=== PATIENT | male | born 1970 | race Caucasian/White ===

== ENCOUNTER 2020-11-28 07:36 | Emergency (ER) | payer MEDICARE, MEDICAID, SELFPAY ==
[2020-11-28 07:55] VITALS: BP 124/90; PULSE 96; RESP 18; TEMP 37; O2SAT 97; BMI 28.8
--- NOTE | 2020-11-28 08:24 | ED_ITS ---
HPI - Skin/Abscess/Foreign Bdy General Chief complaint: Skin/Abscess/Foreign Body Stated complaint: GROWTH ON BACK OF HEAD Time Seen by Provider: 11/28/20 08:10 Source: patient Mode of arrival: ambulatory Limitations: no limitations History of Present Illness HPI narrative: 50-year-old male presents to the ER for evaluation of a painful bump on the back of his head present for the last 3 weeks. He reports being s tarted on antibiotics on Wednesday. The lesions started to drain some pus the other day. He reports some chills and ongoing pain. He would like the lesion to be drained further. He reports compliance with his antibiotics and denies any fevers. MD complaint: abscess/boil Onset (ago): week(s) Tetanus up to date: unsure Location: head Severity: moderate Severity scale (1-10): 5 Quality: aching Pain Consistency: constant Relieving factors: medication Exacerbating factors: palpation Context: none Associated symptoms: chills Treatments prior to arrival: attempted to drain pus at home Related Data Allergies Allergy/AdvReac Type Severity Reaction Status Date / Time Penicillins Allergy Rash Verified 11/28/20 07:55 Review of Systems Review of Systems: Constitutional: No Fever, + Chills ENT/Mouth: No sore throat Cardiovascular: No Chest Pain, No SOB Respiratory: No Cough, No Sputum Gastrointestinal: No Nausea, No Vomiting Musculoskeletal: No joint pain, No Myalgias Skin: + Skin Lesions, No rash Neuro: No Weakness, No Numbness, No Dizziness, + Headache Heme/Lymph: No Lymphadenopathy PMFSH Social History Social History Advance Directives: No Advance Directives Information Provided: No Physical Exam Vital Signs: Vital Signs: Last Vital Signs Temp 98.6 F 11/28/20 07:55 Pulse 96 11/28/20 07:55 Resp 18 11/28/20 07:55 BP 124/90 H 11/28/20 07:55 Pulse Ox 97 11/28/20 07:55 Body Mass Index 28.8 Appearance: Alert. Oriented X3. No acute distress. Head: occipital area with tender mass with central fluctuance, crusting drainage. unable to appreciate any surrounding erythema with hair, no warmth ENT: Pharynx normal. Neck: Normal inspection. Neck supple. CVS: Normal heart rate and rhythm. Pulses normal. Respiratory: No respiratory distress. Breath sounds normal. Abdomen: Soft and nontender. +BS x4 Skin: Skin warm and dry. Normal skin color. Normal skin turgor. No rashes. Extremities: No lower extremity edema. Neuro: Oriented X 3. Grossly normal. Course Course Course Narrative: 50 y/o male presents with painful lump on the back of his head for the last 3 weeks. No surrounding erythema or warmth. He is already on Clinda. Will perform I&D and plan to continue PO abx. Reevaluation(s) Reevaluation #1: Patient tolerated procedure well. Minimal pus was expressed. No need for packing. Dressing was applied. Patient is stable for discharge home with supportive care and oral antibiotics. Procedures Abscess I/D Site: scalp Local Anesthetic: lidocaine 2% Amount of anesthesia used (mL): 1 Technique: incised with blade Sent for culture/gram staining?: No Irrigation: Yes Packing used?: none Complications: bleeding Discharge Plan Discharge Clinical Impression: Carbuncle Patient Disposition: Home, Self-Care Instructions: Furunculosis and Carbunculosis (ED) Additional Instructions: Continue taking your previously prescribed antibiotic. Use warm compresses several times per day. Recommend following up with your doctor. Recommend following up with Dermatology, this may take a long time to resolve. If you have any worsening symptoms go back to the ER. Referrals: Stacey Bautista PA-C [Physician Health Information Administrator] - 1 week (chronic occipital scalp carbuncle )
[2020-11-28] MEDS: Lidocaine HCl 2 % MPF 5 ML VIAL INFILTRATI (09:15)
== END 2020-11-28 09:39 | disposition home or self-care (01) ==
PROVIDERS: Emergency Provider Emergency Medicine; PCP Internal Medicine
DX: L02.831 Carbuncle of head [any part, except face] (principal); Z88.0 Allergy status to penicillin
CPT/HCPCS: 10060; 99283